=== PATIENT | female | born 1975 | race Two or more races ===

== ENCOUNTER 2024-12-21 10:22 | Emergency (ER) | payer MEDICAID, SELFPAY ==
[2024-12-21 10:34] VITALS: BP 99/68; PULSE 91; RESP 16; TEMP 37.1; O2SAT 99; BMI 20.4
--- NOTE | 2024-12-21 10:42 | XR_ITS ---
Examination: Pelvic ultrasound, transabdominal, complete Technique: Transabdominal ultrasound of the pelvis performed using grayscale imaging Date and time of exam: December 21, 2024 1111 hours INDICATIONS: Left lower abdominal pain beginning 2 days ago FINDINGS: Uterus 9.7 cm no discrete uterine mass Mild fluid in the cul-de-sac Right ovary obscured by bowel gas Left ovary 4.0 cm arterial flow follicular cysts, the largest 12 mm IMPRESSION: No uterine mass or intrauterine gestation
--- NOTE | 2024-12-21 10:45 | PD.EDRME ---
Rapid Medical Screening Exam RME Arrival date/time: 12/21/24 10:22 49-year-old female with no known medical history presents to the emergency room with a chief complaint of left lower quadrant abdominal pain nausea vomiting and diarrhea x 2 days I have greeted and performed a focused initial assessment of this patient. A comprehensive ED assessment and evaluation of the patient, analysis of all test results, and completion of the medical decision making process will be conducted by additional ED providers. Chief Complaint: Abdominal Pain Time Seen by Provider: 12/21/24 10:31 Vital signs: Vital Signs Temperature 98.8 F 12/21/24 10:34 Pulse Rate 91 12/21/24 10:34 Respiratory Rate 16 12/21/24 10:34 Blood Pressure 99/68 12/21/24 10:34 Pulse Oximetry (%) 99 12/21/24 10:34 Oxygen Delivery Method Room Air 12/21/24 10:34 Vital signs reviewed by provider: Yes
[2024-12-21 11:11] LABS: Basophils % (Auto) 0 % (0-2.5); Eosinophils % (Auto) 1 % (0-10); Hematocrit 34.5 % (36.0-46.0); Hemoglobin 12.7 g/dL (12.0-16.0); Immature Granulocytes % (Auto) 0 % (0-0); Immature Granulocytes Auto 0.02 Thou/mm3 (0.00-0.00); Lymphocytes # (Auto) 0.9 Thou/mm3 (1.0-4.8); Lymphocytes % (Auto) 19 % (10-50); Mean Corpuscular HGB Conc 36.8 g/dl (31.0-37.0); Mean Corpuscular Hemoglobin 31.4 pg (25.0-35.0); Mean Corpuscular Volume 85 fL (80-100); Monocytes # (Auto) 0.7 Thou/mm3 (0.0-0.8); Monocytes % (Auto) 14 % (0-12); Neutrophils % (Auto) 65 % (37-80); Nucleated Red Blood Cell % 0 /100 WBC (0); Platelet Count 257 Thou/mm3 (140-440); RDW Standard Deviation 35.9 fL (36.4-46.3); Red Blood Count 4.04 Miln/mm3 (4.00-5.20); White Blood Count 4.7 Thou/mm3 (3.6-11.0)
[2024-12-21 11:42] LABS: Alanine Aminotransferase < 7 U/L (10-49); Albumin/Globulin Ratio 1.3 (1.2-2.2); Alkaline Phosphatase 74 U/L (46-116); Anion Gap 8 (7-16); Aspartate Amino Transferase < 10 U/L (0-34); BUN/Creatinine Ratio 18 Ratio (12-20); Bilirubin,Total 0.5 mg/dL (0.3-1.2); Blood Urea Nitrogen 9 mg/dL (9-23); Calcium 8.5 mg/dL (8.3-10.6); Calcium (Corrected) 8.5 mg/dL (8.5-10.1); Carbon Dioxide 23.6 mMol/L (20.0-31.0); Chloride 105 mMol/L (98-107); Creatinine (Component) 0.5 mg/dL (0.6-1.3); Estimated Creatinine Clearance 102.7 mL/min (>60); Globulin 3.1 gm/dL (2.3-3.5); Glucose 223 mg/dL (74-106); Lipase 34 U/L (12-53); Osmolality,Calculated 279 (275-295); Potassium 3.9 mMol/L (3.4-5.1); Sodium 137 mMol/L (136-145); Total Protein 7.1 gm/dL (5.7-8.2); eGFR > 60 See Note
[2024-12-21 15:01] LABS: Collection Type, Urine Clean Catch
[2024-12-21 15:20] LABS: Bacteria,Urine 4+; Bilirubin,Urine Negative (Negative); Blood,Urine Negative (Negative); Color,Urine Yellow (Lt Yel-Yel); Glucose, Urine 2+ (Negative); Ketones,Urine 1+ (Negative); Leukocyte Esterase,Urine Positive (Negative); Nitrite,Urine Negative (Negative); Protein,Urine Trace (Neg - Trace); RBC,Urine 2 /hpf (0-3); Specific Gravity,Urine 1.032 (1.001-1.035); Squamous Epithelial Cell,Urine 11 /hpf (0-5); Urobilinogen,Urine Negative mg/dL (0.0-1.0); WBC,Urine 15 /hpf (0-5)
[2024-12-21 15:30] LABS: HCG Qualitative,Urine Negative
[2024-12-21 15:36] LABS: Clarity,Urine Hazy (Clear/Hazy)
--- NOTE | 2024-12-21 16:49 | EDNOTE_ITS ---
ED Abdominal Pain RME/HPI General Chief Complaint: Abdominal Pain Stated complaint: ABD PAIN, DIARRHEA Time seen by provider: 12/21/24 10:31 Arrival date/time: 12/21/24 10:22 RME / HPI RME / HPI narrative: 49-year-old female with no known medical history presents to the emergency room with a chief complaint of left lower quadrant abdominal pain nausea vomiting and diarrhea x 2 days. Severity of symptoms moderate. Patient also complained of dysuria. Denies any fever denies any vomiting denies any other complaints no medications taken prior to arrival. Related Data Previous Rx's ?Medication ?Instructions ?Recorded HYDROCODONE BITARTRATE/APAP 1 tab PO [id number] PRN PAIN #30 tabs 06/18/13 (VICODIN 5/500) ibuprofen 800 mg tablet 1 cap PO [id number] PRN PAIN #6 0 caps 06/18/13 ibuprofen 600 mg tablet 600 mg PO Q6H #30 tabs 04/18 metformin 500 mg tablet 500 mg PO BID #60 tabs 09/28 ciprofloxacin HCl 500 mg tablet 500 mg PO BID #14 tabs 12/21/24 Allergies Allergy/AdvReac Type Severity Reaction Status Date / Time No Known Allergies Allergy Verified 04/13/23 17:56 Review of Systems Review of Systems Narrative Review of Systems: Review of system reviewed and within normal limits except mentioned in HPI ED Exam Narrative Physical exam: VITAL SIGNS: Reviewed. GENERAL APPEARANCE: Alert and interactive, follows commands, no acute distress, HEAD AND FACE: Non-traumatic. ENT: PERRL, pink conjunctivitis, eyelid no trauma, Mucous membrane moist. NECK: Supple, nontender, no nuchal rigidity. CHEST: No tenderness, no crepitus, no paradoxical movement, no retractions. LUNGS: Clear, well ventilated, symmetric, no rales, no wheezing, no ronchi, no stridor, good breath sounds bilaterally. HEART: Regular rate, regular rhythm, no murmur, no gallops. ABDOMEN: Soft, positive bowel sounds, nondistended, no guarding, left lower pelvic tenderness, no rebound, no masses, RECTAL: Deferred. GENITAL: Deferred. NEUROLOGICAL: Gross motor function intact sensory function intact, Appropriate for age. MUSCULOSKELETAL: low back nontender, full range of motion. EXTREMITIES: Nontender, full range of motion. SKIN: Color pink, dry, no rash, no lacerations, no abrasions, no contusions. LYMPHATICS: Deferred. Course Quality Measures none Orders Category Date Time Status US pelvic complete Stat Exams 12/21/24 10:42 Completed CBC Stat Lab 12/21/24 11:00 Completed CMP [Comprehensive Metabolic Panel] Stat Lab 12/21/24 11:00 Completed HCG Qualitative,Urine Stat Lab 12/21/24 14:51 Completed Lipase Stat Lab 12/21/24 11:00 Completed UA [Urinalysis] Stat Lab 12/21/24 14:51 Completed Urine Culture Stat Lab 12/21/24 14:51 Received Vital Signs Vital signs: Vital Signs Temperature 98.8 F 12/21/24 10:34 Pulse Rate 91 12/21/24 10:34 Respiratory Rate 16 12/21/24 10:34 Blood Pressure 99/68 12/21/24 10:34 Pulse Oximetry (%) 99 12/21/24 10:34 Oxygen Delivery Method Room Air 12/21/24 10:34 Abdominal Pain MDM MDM Narrative MDM Narrative:: 49-year-old female with no known medical history presents to the emergency room with a chief complaint of left lower quadrant abdominal pain nausea vomiting and diarrhea x 2 days. Severity of symptoms moderate. Patient also complained of dysuria. Denies any fever denies any vomiting denies any other complaints no medications taken prior to arrival. Patient's workup significant for UTI CBC no leukocytosis CMP unremarkable except for blood sugar 223 patient is diabetic. Ultrasound of the pelvis came back normal results discussed with the patient. Patient appears nontoxic and hemodynamically stable. Patient discharged home and instructed to follow-up with primary care provider in 24 to 48 hours. Instructed to return to the emergency department immediately if worsening of symptoms Patient data External records reviewed:: None Clinical information provided by:: patient and family Social determinants that could affect healthcare access:: none Patient has the following chronic illnesses:: Diabetes mellitus How is presenting disease/condition affected by chronic disease/condition?: exacerbated by Evaluation data The following diagnostics were reviewed and interpreted by me:: lab results and radiology exam(s) Lab and/or radiology exams considered but not ordered:: None Interpretation Summary: See results MDM Medications / Prescriptions Medications or Prescriptions considered but not ordered:: None Medication administrations:: None Consultations Consultation(s) initiated? (list below): No Diagnosis Differential diagnosis abdominal pain: abdominal pain and gastroenteritis Most likely diagnosis given after review of the tests above:: UTI, gastroenteritis Admission Indicated Admission indicated?: not indicated Admission Request Was there a request for admission?: No Disposition Plan Disposition Plan: Discharge Discharge Attestation Discharge Attestation: The patient and all family members were given an opportunity to ask questions and understood the discharge instructions. Discharge instructions specifically effects, indications for sooner follow up or return to the emergency department, and the expected course of current diagnosis. Patient condition: Stable Discharge Plan Plan Patient Disposition: HOME (Self Care) Discharge Disposition comment: stable Prescriptions/Referrals Prescriptions/Med Rec: New ciprofloxacin HCl 500 mg tablet 500 mg PO BID Qty: 14 0RF No Action ibuprofen 800 MG tablet 1 cap PO [id number] PRN (Reason: PAIN) Qty: 60 0RF HYDROCODONE BITARTRATE/APAP (VICODIN 5/500) 1 TAB tablet 1 tab PO [id number] PRN (Reason: PAIN) Qty: 30 0RF ibuprofen 600 mg tablet 600 mg PO Q6H Qty: 30 0RF metformin 500 mg tablet 500 mg PO BID Qty: 60 0RF Referrals: No Primary/Family,Physician [Primary Care Provider] - In 1 week Problem List Clinical Impression: Gastroenteritis, UTI (urinary tract infection) Patient/Caregiver Discharge Instructions Discharge Activity: activity as tolerated Education Materials: Understanding Urinary Tract ... Additional Instructions: Thank you for the opportunity for serving you today. You are stable for discharged . You are advised to: Follow-up with your PCP in 1 to 2 days Return to ED for worsening of symptoms Increase oral fluids Take medication as prescribed Print Language: Citizen Of [place] Stand Alone Forms: Roya Award Info., Patient Portal Info Letter RIP/LAST Supervising Physician RIP/LAST Supervising Physician: MD Gerald
[2024-12-21 17:04] VITALS: BP 111/76; PULSE 88; RESP 18; TEMP 36.9; O2SAT 100
== END 2024-12-21 17:07 | disposition home or self-care (01) ==
PROVIDERS: Nurse Practitioner Family; Emergency Provider Family Medicine
DX: K52.9 Noninfective gastroenteritis and colitis, unspecified (principal); N39.0 Urinary tract infection, site not specified
CPT/HCPCS: 36415; 76856; 80053; 81001; 81025; 83690; 85025; 87077; 87086; 87186; 99284

== ENCOUNTER 2025-06-11 22:06 | Emergency (ER) | payer MEDICAID, SELFPAY ==
[2025-06-11 22:12] VITALS: BMI 20.5
[2025-06-12 00:20] VITALS: BP 135/78; PULSE 97; RESP 19; TEMP 36.4; O2SAT 98
--- NOTE | 2025-06-12 00:41 | PD.EDADULT ---
ED General RME/HPI General Stated complaint: PAIN SIDE OF HEAD (YAZIDI, EAR,BEHIND EAR AND DOWN Time Seen by Provider: 06/11/25 22:34 Arrival date/time: 06/11/25 22:06 49-year-old female reports with complaints of right side muslim and face and ear pain for several days. Patient denies any skin rash trauma dizziness blurred vision ringing in ears loss of hearing nausea vomiting or weakness. Patient states that she has been taking [id number]-[id number] medications with no improvement of symptoms Limitations: no limitations Related Data Previous Rx's ?Medication ?Instructions ?Recorded HYDROCODONE BITARTRATE/APAP 1 tab PO [id number] PRN PAIN #30 tabs 06/18/13 (VICODIN 5/500) ibuprofen 800 mg tablet 1 cap PO [id number] PRN PAIN #60 caps 06/18/13 ibuprofen 600 mg tablet 600 mg PO Q6H #30 tabs 04/18/23 metformin 500 mg tablet 500 mg PO BID #60 tabs 09/28/23 ciprofloxacin HCl 500 mg tablet 500 mg PO BID #14 tabs 12/21/24 Allergies Allergy/AdvReac Type Severity Reaction Status Date / Time No Known Allergies Allergy Verified 06/11/25 22:17 Review of Systems Constitutional Constitutional: Denies chills, Denies fever(s) and Denies headache(s) Eyes Eyes: Denies blind spots and Denies diplopia ENT Ears, Nose, Mouth, and Throat: Denies dental pain, Reports otalgia, Denies headache(s) and Reports other Cardiovascular Cardiovascular: Denies syncope Musculoskeletal Musculoskeletal: Denies numbness and Denies tingling Integumentary/Breasts Skin/Breast: Denies rash and Denies skin pain Neurologic Neurologic: Denies headache(s), Denies numbness, Denies syncope and Denies tingling Psychiatric Psychiatric: Denies anxiety and Denies depression Past Medical History Social History SMOKING STATUS: Never smoker ED Exam General Limitations: Present no limitations General appearance: Present alert and in no apparent distress Head Head exam: Present atraumatic Eye Eye exam: Present normal appearance, PERRL and EOMI ENT ENT exam: Present normal oropharynx, mucous membranes moist, TM's normal bilaterally, normal external ear exam and other (Poor dentition) Neck Neck exam: Present normal inspection, full ROM and trachea midline; Absent lymphadenopathy Neurological Exam Neurological exam: Present alert, oriented X3 and CN II-XII intact Psychiatric Psychiatric exam: Present normal affect and normal mood Skin Skin exam: Present warm, dry, intact and normal color Course Quality Measures none Vital Signs Vital signs: Vital Signs Temperature 97.5 F 06/12/25 00:20 Pulse Rate 97 06/12/25 00:20 Respiratory Rate 19 06/12/25 00:20 Blood Pressure 135/78 H 06/12/25 00:20 Pulse Oximetry (%) 98 06/12/25 00:20 Oxygen Delivery Method Room Air 06/12/25 00:20 Discharge Plan Plan Patient Disposition: HOME (Self Care) Prescriptions/Referrals Prescriptions/Med Rec: No Action ibuprofen 800 MG tablet 1 cap PO [id number] PRN (Reason: PAIN) Qty: 60 0RF HYDROCODONE BITARTRATE/APAP (VICODIN 5/500) 1 TAB tablet 1 tab PO [id number] PRN (Reason: PAIN) Qty: 30 0RF ibuprofen 600 mg tablet 600 mg PO Q6H Qty: 30 0RF metformin 500 mg tablet 500 mg PO BID Qty: 60 0RF ciprofloxacin HCl 500 mg tablet 500 mg PO BID Qty: 14 0RF Referrals: Ilana Horton FNP [Primary Care Provider] - In 1 week Problem List Clinical Impression: Pain, dental Patient/Caregiver Discharge Instructions Discharge Activity: activity as tolerated Education Materials: ED Dental Pain Additional Instructions: Your exam was normal. The pain is most likely being caused by your teeth therefore you should follow-up with a dentist immediately, take [id number] medication such as Tylenol or ibuprofen as needed for pain Print Language: German Stand Alone Forms: Roya Award Info., Patient Portal Info Letter
[2025-06-12] MEDS: KETOROLAC INJ 30 MG/ML VIAL IM (00:47)
== END 2025-06-12 00:51 | disposition home or self-care (01) ==
PROVIDERS: Emergency Provider Physician Assistant; PCP Nurse Practitioner Family
DX: K08.89 Other specified disorders of teeth and supporting structures (principal)
CPT/HCPCS: 96372; 99282; J1885